=== PATIENT | male | born 1980 | race Caucasian/White ===

== ENCOUNTER 2018-08-24 13:51 | Emergency (ER) | payer SELFPAY ==
[~2018-08-24] VITALS: Ht 175 cm; Wt 98.7 kg
[2018-08-24 14:03] VITALS: BP 132/81; PULSE 73; RESP 16; Ht 175 cm; Wt 98.7 kg
[2018-08-24] MEDS ORDERED: HYDR-4011 PO (14:40)
[2018-08-24] MEDS ORDERED: OFLO5DRO7 RIGHT EAR (14:40)
--- NOTE | 2018-08-24 15:35 | ERD ---
ER Documentation Chief Complaint Chief Complaint R ear pain x15d; finished abx 3d ago, forgot which med HPI 38-year-old male presenting with pain to his right ear. Patient was given oral antibiotics 1 week ago with his primary doctor and states his pain does not resolve. He is unsure if there is something in his right ear. He has had continued pain that is constant. Mild drainage. Denies other medical problems. NKDA. Surgical history denies. Social history denies ROS All systems reviewed and are negative except as per history of present illness. Medications Home Meds Active Scripts Hydrocodone/Acetaminophen ([place]well 5-325 Tablet) 1 Each Tablet, 1 TAB PO Q6H PRN for PAIN, #7 TAB Prov:KRISSY ROOT PA-C 08/24/18 Ofloxacin Otic (Ofloxacin Otic) 5 Ml Drops, 5 DROP RIGHT EAR BID for 10 Days, #1 BOTTLE Prov:KRISSY ROOT PA-C 08/24/18 Allergies Allergies: Coded Allergies: No Known Allergy (Unverified , 08/24/18) FmHx Family History: No diabetes, No coronary disease, No other Physical Exam Vitals Vital Signs Date Temp Pulse Resp B/P (MAP) Pulse Ox O2 O2 Flow FiO2 Time Delivery Rate 08/24/18 98.3 73 16 132/81 98 14:03 (98) Physical Exam GENERAL: The patient is well-appearing, well-nourished, in no acute distress HEENT: Atraumatic. Conjunctivae are pink. Pupils equal, round, and reactive to light. There is no scleral icterus. White mass noted within the right external ear canal with concerning findings of an insect. External ear canal is markedly erythematous and swollen. NECK: C-spine is soft and supple. There is no meningismus. There is no cervical lymphadenopathy. CHEST: Clear to auscultation bilaterally. There are no rales, wheezes or rhonchi. HEART: Regular rate and rhythm. No murmurs, clicks, rubs or gallops. Procedures/MDM ER course: Foreign body is attempted to be removed however upon further evaluation there is concern for extensive swelling due to infection that needs to be treated with oral antibiotics first. I feel that a ear lavage would cause further injury and patient should follow-up with specialist. MDM: 38-year-old male presenting with pain to his right ear. I am concerned the patient has extensive infection due to foreign body. Patient will be treated with otic antibiotic drops. She is recommended follow-up with ENT specialist for further evaluation and ear lavage after being treated for few days with otic antibiotic drops. Patient is told symptoms change or worsen to return the ER. I have low suspicion for ruptured TM or mastoiditis. Patient is discharged with strict ER precautions. All questions answered at discharge Departure Diagnosis: Primary Impression: Right ear pain Condition: Stable Patient Instructions: Foreign Object in the Ear or Nose, External Ear Infection (Adult) Referrals: [facility] YOU HAVE RECEIVED A MEDICAL SCREENING EXAM AND THE RESULTS INDICATE THAT YOU DO NOT HAVE A CONDITION THAT REQUIRES URGENT TREATMENT IN THE EMERGENCY DEPARTMENT. FURTHER EVALUATION AND TREATMENT OF YOUR CONDITION CAN WAIT UNTIL YOU ARE SEEN IN YOUR DOCTORS OFFICE WITHIN THE NEXT 1-2 DAYS. IT IS YOUR RESPONSIBILITY TO MAKE AN APPOINTMENT FOR FOLOW-UP CARE. IF YOU HAVE A PRIMARY DOCTOR --you should call your primary doctor and schedule an appointment IF YOU DO NOT HAVE A PRIMARY DOCTOR YOU CAN CALL OUR PHYSICIAN REFERRAL HOTLINE AT IF YOU CAN NOT AFFORD TO SEE A PHYSICIAN YOU CAN CHOSE FROM THE FOLLOWING [facility] [address] [facility]. [facility] [address] [facility]. [facility] [address] [facility] [facility] [address] [facility]. [facility] [address] [facility] [facility]. [address] Additional Instructions: FOLLOW UP WITH YOUR PRIMARY CARE PHYSICIAN TOMORROW.Return to this facility if you are not improving as expected. KRISSY ROOT PA-C Aug 24, 2018 15:35
== END 2018-08-24 15:30 | disposition home or self-care (01) ==
LOC: FTE 13:51
DX: H92.01 Otalgia, right ear (principal)
CPT/HCPCS: 99283